=== PATIENT | male | born 1970 | race Caucasian/White ===

== ENCOUNTER 2020-06-30 06:55 | Emergency (ER) | payer BC, OTHER ==
[2020-06-30 07:20] LABS: CHLORIDE,CL 101 mmol/L (98-107); SODIUM,NA 135 mmol/L (136-145)
[2020-06-30] MEDS ORDERED: methylPREDNISolone Sodium Succinate 125 MG/2 ML SDV IM ONE (07:35)
[2020-06-30] MEDS ORDERED: Ciprofloxacin 500 MG Tab PO ONE (07:50)
--- NOTE | 2020-06-30 07:57 | EDM.PDOC ---
ED HPI GENERAL MEDICAL PROBLEM - General Chief Complaint: Respiratory Problem Stated Complaint: SOB, cough, runny nose Time Seen by Provider: 06/30/20 07:05 Source of Information: Reports: Patient History Limitations: Reports: No Limitations - History of Present Illness INITIAL COMMENTS - FREE TEXT/NARRATIVE: Pt with increased SOB, dry cough questionable fever Began several days ago as cold symptoms No known Covid exposure Has hx/o asthma Used steroids in past Onset: Gradual Duration: Day(s):, Getting Worse Location: Reports: Chest Associated Symptoms: Reports: Cough, Shortness of Breath Generalized Pain Score (Numeric/FACES): 6 - Related Data Allergies Allergy/AdvReac Type Severity Reaction Status Date / Time No Known Allergies Allergy Verified 06/30/20 07:00 Home Meds: Home Meds . [No Known Home Meds] 06/30/20 [History] ED ROS GENERAL - Review of Systems Review Of Systems: See Below HEENT: Reports: Other (Congestion) Respiratory: Reports: Shortness of Breath Cardiovascular: Reports: No Symptoms GI/Abdominal: Reports: No Symptoms Musculoskeletal: Reports: No Symptoms Skin: Reports: No Symptoms ED EXAM, GENERAL - Physical Exam Exam: See Below Exam Limited By: No Limitations General Appearance: Alert, WD/WN, Mild Distress Nose: Other (Congestion) Throat/Mouth: Normal Oropharynx Neck: Supple Respiratory/Chest: Decreased Breath Sounds, Wheezing Cardiovascular: Regular Rate, Rhythm GI/Abdominal: Soft, Non-Tender Extremities: Normal Inspection Neurological: Alert, Oriented Psychiatric: Normal Affect, Normal Mood Course - Vital Signs Last Recorded V/S: Last Vital Signs Temp 99.6 F 06/30/20 07:01 Pulse 111 H 06/30/20 07:01 Resp 24 H 06/30/20 07:01 BP 158/93 H 06/30/20 07:01 Pulse Ox 93 L 06/30/20 07:01 - Orders/Labs/Meds Orders: Active Orders 24 hr Category Date Time Status Chest 1V Frontal [CR] Stat Exams 06/30/20 06:59 Ordered CORONAVIRUS COVID-19 NISHI [MOLEC] Urgent Lab 06/30/20 06:59 Ordered INFLUENZA A+B AG SCREEN [RM] Stat Lab 06/30/20 07:09 Ordered Isolation [COMM] Routine Oth 06/30/20 07:09 Active Labs: Laboratory Tests 06/30/20 06/30/20 Range/Units 06:55 06:55 WBC 13.5 H (4.0-10.2) K/uL RBC 5.67 H (4.33-5.41) M/uL Hgb 17.3 H (13.1-16.8) g/dL Hct 49.1 H (39.0-49.0) % MCV 86.6 (84.0-98.0) fL MCH 30.5 (28.2-33.3) pg MCHC 35.2 (31.7-36.0) g/dL RDW 12.7 (11.2-14.1) % Plt Count 167 (150-350) K/uL Neut % (Auto) 76.0 (45.0-80.0) % Lymph % (Auto) 12.1 (10.0-50.0) % [place] % (Auto) 9.9 (2.0-14.0) % Eos % (Auto) 1.8 (0.0-5.0) % Baso % (Auto) 0.2 (0.0-2.0) % Neut # (Auto) 10.27 H (1.40-7.00) K/uL Lymph # (Auto) 1.63 (0.50-3.50) K/uL [place] # (Auto) 1.34 H (0.00-1.00) K/uL Eos # (Auto) 0.24 (0.00-0.50) K/uL Baso # (Auto) 0.03 (0.00-0.20) K/uL Sodium 135 L (136-145) mmol/L Potassium 3.9 (3.5-5.1) mmol/L Chloride 101 (98-107) mmol/L Carbon Dioxide 21.6 (21.0-32.0) mmol/L BUN 14 (7-18) mg/dL Creatinine 0.92 (0.51-1.17) mg/dL Est Cr Clr Drug Dosing 104.58 mL/min Estimated GFR (MDRD) > 60 mL/min Glucose 118 H (74-106) mg/dL Calcium 8.8 (8.5-10.1) mg/dL Total Bilirubin 0.5 (0.2-1.0) mg/dL AST 29 (15-37) U/L ALT 42 (12-78) U/L Alkaline Phosphatase 98 (46-116) IU/L Total Protein 7.8 (6.4-8.2) g/dL Albumin 4.0 (3.4-5.0) g/dL Meds: Medications Discontinued Medications Generic Name Dose Route Start Last Admin Trade Name Scott PRN Reason Stop Dose Admin Ciprofloxacin 500 mg 06/30/20 07:50 Ciprofloxacin Hcl PO 06/30/20 07:51 ONETIME ONE Methylprednisolone Sodium Succinate 125 mg 06/30/20 07:35 06/30/20 07:43 Solu-Medrol IM 06/30/20 07:36 125 mg ONETIME ONE Administration - Re-Assessments/Exams Free Text/Narrative Re-Assessment/Exam: 06/30/20 07:54 Pt given Cipro 500 mg PO, Solumedrol 125 mg IM and Albuterol inhaler in ER See lab and CXR Departure - Departure Time of Disposition: 08:00 Disposition: Home, Self-Care 01 Clinical Impression: Exacerbation of asthma Qualifiers: Asthma severity: unspecified severity Asthma persistence: intermittent Qualified Code(s): J45.21 - Mild intermittent asthma with (acute) exacerbation - Discharge Information *PRESCRIPTION DRUG MONITORING PROGRAM REVIEWED*: Not Applicable *COPY OF PRESCRIPTION DRUG MONITORING REPORT IN PATIENT DENISSE: Not Applicable Instructions: Shortness of Breath, Adult, [id number], Asthma, Adult Referrals: Fatimah Benson, CYTO[employer]ETIC TECHNOLOGIST [Primary Care Provider] - Additional Instructions: Rx Z-nidia Rx Medrol dos nidia Rx Albuterol inhaler as needed Follow up in clinic Sepsis Event Note (ED) - Evaluation Sepsis Screening Result: Possible Sepsis Risk - Focused Exam Vital Signs: Vital Signs Temp Pulse Resp BP Pulse Ox 06/30/20 07:01 99.6 F 111 H 24 H 158/93 H 93 L - My Orders Last 24 Hours: My Active Orders 06/30/20 06:59 Chest 1V Frontal [CR] Stat CORONAVIRUS COVID-19 NISHI [MOLEC] Urgent 06/30/20 07:09 INFLUENZA A+B AG SCREEN [RM] Stat Isolation [COMM] Routine - Assessment/Plan Last 24 Hours: My Active Orders 06/30/20 06:59 Chest 1V Frontal [CR] Stat CORONAVIRUS COVID-19 NISHI [MOLEC] Urgent 06/30/20 07:09 INFLUENZA A+B AG SCREEN [RM] Stat Isolation [COMM] Routine
== END 2020-06-30 08:10 | disposition home or self-care (01) ==
LOC: LL.ED 06:55
DX: J45.21 Mild intermittent asthma with (acute) exacerbation (principal); Z20.828 Contact with and (suspected) exposure to other viral communicable diseases
CPT/HCPCS: 36415; 71045; 80053; 85025; 87804; 96372; 99285-25; A9270-GY; J2930; U0002